=== PATIENT | female | born 1975 | race Caucasian/White ===

== ENCOUNTER 2020-08-15 15:54 | Emergency (ER) | payer OTHER ==
[2020-08-15 16:08] VITALS: BP 127/88; PULSE 91; O2SAT 99
[2020-08-15] MEDS ORDERED: TORAdol 30 mg Injection IM ONE (16:15)
[2020-08-15] MEDS ORDERED: Norflex 60 MG/2 ML IM ONE (16:15)
--- NOTE | 2020-08-15 16:21 | ERPHSYRPT ---
- History of Present Illness Time Seen by Provider: 08/15/20 16:18 Source: patient Exam Limitations: physical impairment Patient Subjective Stated Complaint: Pt states that she was getting into a truck when she felt a "tear" in her lower right back, rates the pain 10/10 Triage Nursing Assessment: Pt brought to the ER by her boyfriend, pt rates pain as 10/10 but she is laughing in bed and doesn't appear to be in any pain, vitals wnl, pulses normal, pt has hx of breaking tailbone x2 approx 17 years ago, denies any other injuries to the back, skin n/w/d, no difficulties with strength Physician History: Pt states that she was getting into a truck when she felt a "tear" in her lower right back, rates the pain 10/10 Timing/Duration: yesterday Method of Injury: slipped, twisted, turning Quality: aching Back Pain Location: lumbar spine Back Pain Radiation: lower legs Severity of Pain-Max: severe Severity of Pain-Current: severe Modifying Factors: Improves With: nothing Associated Symptoms: denies symptoms Previous symptoms: no prior history Allergies/Adverse Reactions: Sulfa (Sulfonamide Antibiotics) Allergy (Mild, Verified 08/15/20 16:08) Swelling hydrocodone bitartrate [From Vicodin] Adverse Reaction (Verified 08/15/20 16:08) Home Medications: Doxepin HCl 150 mg PO HS 08/15/20 [History] Famotidine 20 mg [Pepcid 20 MG] 40 mg PO DAILY 08/15/20 [History] Hx Tetanus, Diphtheria Vaccination/Date Given: No Hx Influenza Vaccination/Date Given: No Hx Pneumococcal Vaccination/Date Given: No Travel Risk - International Travel Have you traveled outside of the country in past 3 weeks: No - Coronavirus Screening Are you exhibiting any of the following symptoms?: No Close contact with a COVID-19 positive Pt in past 14-21 Days: No - Review of Systems Constitutional: No Symptoms Eyes: No Symptoms Ears, Nose, & Throat: No Symptoms Respiratory: No Symptoms Cardiac: No Symptoms Abdominal/Gastrointestinal: No Symptoms Genitourinary Symptoms: No Symptoms Musculoskeletal: Back Pain Skin: No Symptoms Neurological: No Symptoms - Past Medical History Pertinent Past Medical History: Yes Neurological History: No Pertinent History ENT History: No Pertinent History Cardiac History: No Pertinent History Respiratory History: No Pertinent History Endocrine Medical History: No Pertinent History Musculoskeletal History: No Pertinent History GI Medical History: Ulcer History: No Pertinent History Psycho-Social History: Anxiety, Depression Female Reproductive Disorders: No Pertinent History Other Medical History: hiatal hernia, anemia, covid - Past Surgical History Past Surgical History: Yes Neuro Surgical History: No Pertinent History Cardiac: No Pertinent History Respiratory: No Pertinent History Gastrointestinal: Hernia Repair Genitourinary: No Pertinent History Musculoskeletal: No Pertinent History Female Surgical History: Section Other Surgical History: egd 2011 , haital hernia repair - Social History Smoking Status: Never smoker Exposure to second hand smoke: No Drug Use: none Patient Lives Alone: No - Female History Hx Last Menstrual Period: 08/14/2020 Hx Now: No - Nursing Vital Signs Nursing Vital Signs: Initial Vital Signs Temperature 97.6 F 08/15/20 15:58 Pulse Rate 91 H 08/15/20 15:58 Blood Pressure 127/88 08/15/20 15:58 O2 Sat by Pulse Oximetry 99 08/15/20 15:58 Pain Scale Pain Intensity [] 10 Pain Intensity 10 - Physical Exam General Appearance: mild distress Eye Exam: PERRL/EOMI Ears, Nose, Throat Exam: normal ENT inspection Neck Exam: normal inspection Respiratory Exam: normal breath sounds Cardiovascular Exam: regular rate/rhythm Gastrointestinal Exam: soft Back Exam: decreased range of motion, muscle spasm, No CVA tenderness, No vertebral tenderness, No rash, No point tenderness Extremity Exam: normal inspection Neurologic Exam: alert, oriented x 3, cooperative, sensation nml, No motor deficits Skin Exam: normal color SpO2 Interpretation: normal SpO2: 99 O2 Delivery: Room Air - Course Nursing assessment & vital signs reviewed: Yes - Radiology Exams L-Spine X-ray Interpretation: Reviewed by me Ordered Tests: Active Orders 24 hr Category Date Time Status LUMBAR LIMITED (2 OR 3 VIEWS) Stat Exams 08/15/20 16:16 Ordered Medication Summary Discontinued Medications Generic Name Dose Route Start Last Admin Trade Name Freq PRN Reason Stop Dose Admin Ketorolac Tromethamine 60 mg 08/15/20 16:15 08/15/20 16:35 Toradol 30 Mg Injection IM 08/15/20 16:16 60 mg STAT ONE Administration Ketorolac Tromethamine Confirm 08/15/20 16:24 Toradol 30 Mg Injection Administered 08/15/20 16:25 Dose 60 mg .ROUTE .STK-MED ONE Orphenadrine Citrate 60 mg 08/15/20 16:15 08/15/20 16:35 Norflex 60 Mg/2 Ml IM 08/15/20 16:16 60 mg STAT ONE Administration Orphenadrine Citrate Confirm 08/15/20 16:24 Norflex 60 Mg/2 Ml Administered 08/15/20 16:25 Dose 60 mg .ROUTE .STK-MED ONE - Progress Progress: improved, pain not gone completely Counseled pt/family regarding: diagnosis, need for follow-up, rad results - Departure Departure Disposition: Home Clinical Impression: Lumbalgia Qualifiers: Chronicity: acute Back pain laterality: bilateral Sciatica presence: without sciatica Qualified Code(s): M54.5 - Low back pain Condition: Stable Critical Care Time: No Referrals: ROBINSON WATKINS, [employer] SUPPORT CONTROL OFFICER [Primary Care Provider] - Instructions: Low Back Pain (DC) Additional Instructions: Discharge/Care Plan ROBIN BECKMAN was seen on 08/15/20 in the Emergency Room. The patient was counseled regarding Diagnosis,Lab results, Imaging studies, need for follow up and when to return to the Emergency Room. Prescriptions given: Discharge Note I have spoken with the patient and/or caregivers. I have explained the patient's condition, diagnosis and treatment plan based on the information available to me at this time. I have answered the patient's and/or caregiver's questions and addressed any concerns. The patient and/or caregivers have as good understanding of the patient's diagnosis, condition and treatment plan as can be expected at this point. The vital signs have been stable. The patient's condition is stable and appropriate for discharge from the emergency department. The patient will pursue further outpatient evaluation with the primary care phys ician or other designated or consulting physician as outlined in the discharge instructions. The patient and/or caregivers are agreeable to this plan of care and follow-up instructions have been explained in detail. The patient and/or caregivers have received these instruction. The patient/and or caregivers are aware that any significant change in condition or worsening of symptoms should prompt an immediate return to this or the closest emergency department or call 911. ROBIN BECKMAN was seen on 08/15/20 n the Emergency Room. At that time you were treated for an emergent condition, during your visit Laboratory, Radiology and/or other procedures may have been ordered. It is very important that you follow-up with your Primary Care Physician ROBINSON WATKINS within the next 24- 48 hours to review your Emergency Room visit and the final results of testing that was ordered. Some test results such as Urine Cultures, Blood Cultures, and other cultures if ordered will not be finalized for 24-48 hours. If you do not have a Primary Care Provider please call the medical records department at [phone] ext [phone] to obtain a copy of your results or you may sign into our patient portal to obtain these results by visiting us @ [email or web address] and completing the following steps: 1. Click on the Patient Portal link 2. Click the Patient Self Enrollment Link to complete the enrollment form and entering your 3. Once the enrollment form is completed you will receive an email with a temporary ID and password at the email address you provided. 4. Next choose a user name and password. Your user name must be at least 4 characters long and your password must be at least 4 characters long. 5. Choose a security question from the list and provide your answer to the question. If you already have signed into the Health Portal you may access your Health C are Information 18/06 by the following steps: 1. Login to our website @ [email or web address] 2. Enter your original user name and password. FAQS The [facility] is an online tool that contains your Lab Results, Radiology Reports, Visit History, Discharge Instructions and Health Summary Lab and Radiology Results will not be available for 72 hours on the portal. The Portal is a secure site, passwords are encryted and URLs are re-written so they cannot be copied and pasted. You and authorized family members are the only ones who can access your Portal. Also there is a timeout feature that protects your information if you leave the Portal page open. If you have technical difficulty please use the Contact Us link on the page this will allow you to submit any questions you have regarding the Portal or you may contact the Medical Record Department at [phone] ext [phone]. Prescriptions: Cyclobenzaprine HCl 10 mg [Flexeril 10 MG] 10 mg PO TID #30 tablet Naproxen 375 mg [Naprosyn 375 mg] 375 mg PO Q8H #30 tablet
[2020-08-15] MEDS ORDERED: Norflex 60 MG/2 ML ONE (16:24)
[2020-08-15] MEDS ORDERED: TORAdol 30 mg Injection ONE (16:24)
--- NOTE | 2020-08-15 19:20 | XRAY ---
Indication: Left low back pain following injury. Comparison: None 3 view lumbar spine demonstrates 5 lumbar vertebral segments in normal alignment with vertebral body heights/disc spaces maintained. Minimal multilevel anterior endplate spurring and mild diffuse scattered colonic fecal debris. No other bony, articular, or soft tissue abnormalities.
== END 2020-08-15 17:01 | disposition home or self-care (01) ==
LOC: ED 15:54
DX: M45.4 Ankylosing spondylitis of thoracic region (principal); X50.9XXA Other and unspecified overexertion or strenuous movements or postures, initial encounter; Y93.9 Activity, unspecified; Y92.9 Unspecified place or not applicable
CPT/HCPCS: 72100; 96372; 99284; J1885; J2360

== ENCOUNTER 2020-08-26 14:17 | Emergency (ER) | payer OTHER ==
--- NOTE | 2020-08-26 14:54 | ERPHSYRPT ---
- History of Present Illness Time Seen by Provider: 08/26/20 14:35 Source: patient Exam Limitations: no limitations Patient Subjective Stated Complaint: shingles outbreak on neck Triage Nursing Assessment: pt to ED c/o shingles outbreak on bilateral sides of neck at hairline. hx shingles and she has had them intermittently since Oct 2019. rates 8/10 pain and ithcing at lesions. no drainage noted. pt reports some mild odor "like infection" at lesions, but no odor noted on arrival to ED. started abx last week but does not feel like its helping. Physician History: This is a 44-year-old white female who has had recurrent episodes of shingles on her neck in the past. She has had 3 episodes in the last year per her report. Patient had been placed on Valtrex with resolution of her skin symptoms. It is very tender per her report patient has been on Valtrex now for a week without improvement. Patient has had no fever. Patient desires an alternative to Valtrex because she does not feel that this is working for her. Patient also states that she has a left tongue ulceration that coincided with the onset of this outbreak. Timing/Duration: week(s) (Approximately 1 week) Quality: burning, itchy, painful Severity: moderate Location: scalp (Within her hairline at the junction between hair and no hair on her neck posteriorly.) Possible Causes: other (Viral) Associated Symptoms: blisters, change in skin texture Allergies/Adverse Reactions: Sulfa (Sulfonamide Antibiotics) Allergy (Mild, Verified 08/15/20 16:08) Swelling hydrocodone bitartrate [From Vicodin] Adverse Reaction (Verified 08/15/20 16:08) Home Medications: Doxepin HCl 150 mg PO HS 08/15/20 [History] Famotidine 20 mg [Pepcid 20 MG] 40 mg PO DAILY 08/15/20 [History] Hx Tetanus, Diphtheria Vaccination/Date Given: No Hx Influenza Vaccination/Date Given: No Hx Pneumococcal Vaccination/Date Given: No Travel Risk - International Travel Have you traveled outside of the country in past 3 weeks: No - Coronavirus Screening Are you exhibiting any of the following symptoms?: No Close contact with a COVID-19 positive Pt in past 14-21 Days: No - Review of Systems Constitutional: No Symptoms Eyes: No Symptoms Ears, Nose, & Throat: Other (Ulceration left lateral tongue) Respiratory: No Symptoms Cardiac: No Symptoms Abdominal/Gastrointestinal: No Symptoms Genitourinary Symptoms: No Symptoms Musculoskeletal: No Symptoms Skin: Rash (Painful at the base of scalp in the hairline) Neurological: No Symptoms Psychological: No Symptoms Endocrine: No Symptoms Immunological/Allergic: No Symptoms All Other Systems: Reviewed and Negative - Past Medical History Pertinent Past Medical History: Yes Neurological History: No Pertinent History ENT History: No Pertinent History Cardiac History: No Pertinent History Respiratory History: No Pertinent History Endocrine Medical History: No Pertinent History Musculoskeletal History: No Pertinent History GI Medical History: Ulcer History: No Pertinent History Psycho-Social History: Anxiety, Depression Female Reproductive Disorders: No Pertinent History Other Medical History: hiatal hernia, anemia, covid May 2020. - Past Surgical History Past Surgical History: Yes Neuro Surgical History: No Pertinent History Cardiac: No Pertinent History Respiratory: No Pertinent History Gastrointestinal: Hernia Repair Genitourinary: No Pertinent History Musculoskeletal: No Pertinent History Female Surgical History: Section Other Surgical History: egd 2011 , haital hernia repair - Social History Smoking Status: Never smoker Exposure to second hand smoke: No Drug Use: none Patient Lives Alone: No - Female History Hx Now: No - Nursing Vital Signs Nursing Vital Signs: Initial Vital Signs Temperature 97.6 F 08/26/20 14:24 Pulse Rate 87 08/26/20 14:24 Respiratory Rate 18 08/26/20 14:24 Blood Pressure 127/99 08/26/20 14:24 O2 Sat by Pulse Oximetry 99 08/26/20 14:24 Pain Scale Pain Intensity 8 - Physical Exam General Appearance: no apparent distress, alert, anxiety Eye Exam: PERRL/EOMI, eyes nml inspection Ears, Nose, Throat Exam: normal ENT inspection, moist mucous membranes Neck Exam: normal inspection, non-tender, supple, full range of motion Respiratory Exam: airway intact, No chest tenderness, No respiratory distress Gastrointestinal/Abdomen Exam: No tenderness Pelvic Exam: not done Rectal Exam: not done Back Exam: normal inspection, normal range of motion, No CVA tenderness, No vertebral tenderness Extremity Exam: normal inspection, normal range of motion, pelvis stable Neurologic Exam: alert, oriented x 3, cooperative, quality control coordinator II-XII nml as tested, normal mood/affect, nml cerebellar function, nml station & gait, sensation nml Skin Exam: rash (Painful rash, with blistering and crusting at the hairline at the base of her scalp posteriorly neck), other (No evidence of cellulitis) Lymphatic Exam: No adenopathy SpO2 Interpretation: normal SpO2: 99 O2 Delivery: Room Air - Course Nursing assessment & vital signs reviewed: Yes - Progress Progress Note: 08/26/20 14:58 Patient is not allergic to hydrocodone. She had some forgetfulness after receiving this postoperatively. She does not have a true allergy to hydrocodone. She thinks that the forgetfulness was more a function of the anesthesia she received rather than the hydrocodone. Counseled pt/family regarding: diagnosis, need for follow-up - Departure Departure Disposition: Home Clinical Impression: Shingles rash Condition: Stable Critical Care Time: No Referrals: ROBINSON WATKINS FOOD TESTER [Primary Care Provider] - Additional Instructions: Keep the rash area clean daily with soap and water. Do not scratch. Stop your Valtrex. Follow-up with your primary care physician for further management. Prescriptions: Oxycodone HCl/Acetaminophen [Percocet 5-325 mg Tablet] 1 each PO Q8H PRN PRN #8 tablet MDD 3 PRN Reason: Pain hydrOXYzine pamoate [Vistaril] 25 mg PO Q8H PRN PRN #10 capsule PRN Reason: Itching Acyclovir 800 mg [Zovirax 800 mg] 800 mg PO 5XD #35 tablet
[2020-08-26 15:21] VITALS: BP 125/99; PULSE 91; O2SAT 97
== END 2020-08-26 15:33 | disposition home or self-care (01) ==
LOC: ED 14:17
DX: B02.9 Zoster without complications (principal); R21 Rash and other nonspecific skin eruption
CPT/HCPCS: 99283

== ENCOUNTER 2021-11-08 13:16 | Emergency (ER) | payer OTHER ==
[2021-11-08] MEDS ORDERED: BABY ASPIRIN 81 MG CHEW PO ONE (13:33)
[2021-11-08] MEDS ORDERED: GI COCKTAIL 45 ML (Maalox/Lidocaine) PO ONE (13:34)
[2021-11-08] MEDS ORDERED: BABY ASPIRIN 81 MG CHEW ONE (13:57)
--- NOTE | 2021-11-08 13:57 | XRAY ---
Indication: Chest pain. Comparison: May 22, 2016. Portable chest again demonstrates normal heart and lungs. Bony thorax intact. No new/acute findings.
[2021-11-08] MEDS ORDERED: XYLOCAINE HCl Viscous ONE (13:59)
[2021-11-08] MEDS ORDERED: MAALOX ES 30 ML UNIT DOSE ONE (13:59)
[2021-11-08 14:07] LABS: BASOPHIL % 0.5 % (0.0-0.4); Basophil (Absolute #) 0.05 (0-0.4); Eosinophil % 0.5 % (0.00-5.0); Eosinophil (Absolute #) 0.05 (0-0.5); Hematocrit 45.9 % (35-47); Hemoglobin 14.9 gm/dl (12.0-16.0); Lymphocytes % 14.9 % (24.0-44.0); Mean Cell Volume 99.1 fl (78-100); Mean Corpuscular Hemoglobin 32.2 pg (26-32); Mean Corpuscular Hgb Concent. 32.5 g/dl (32-36); Mean Platelet Volume 9.3 fl (7.5-11.0); Monocytes % 5.3 % (0.0-12.0); Neutrophil % 78.8 % (36.0-66.0); Platelet Count 428 K/mm3 (150-450); Red Blood Count 4.63 M/mm3 (4.1-5.4); Red Cell Distribution Width 13.3 % (11.5-14.0); White Blood Count 9.4 K/mm3 (4.0-10.5)
[2021-11-08 14:58] LABS: ALBUMIN 4.1 g/dL (3.5-5.0); ALKALINE PHOSPHATASE 89 U/L (38-126); ANION GAP 13.1 MEQ/L (5-15); BLOOD UREA NITROGEN 12 mg/dL (7-17); CHLORIDE 103 mmol/L (98-107); Calcium 8.8 mg/dL (8.4-10.2); Carbon Dioxide 24 mmol/L (22-30); Creatinine 1 0.76 mg/dL (0.52-1.04); EST GLOMERULAR FILTRATION RATE > 60.0 ML/MIN; Glucose 84 mg/dL (74-106); NT PRO BNP 98.6 pg/mL (0-450); Potassium 4.7 mmol/L (3.5-5.1); SGOT/AST 31 U/L (14-36); SGPT/ALT 20 U/L (0-35); SODIUM 135 mmol/L (137-145); Total Protein 6.9 g/dL (6.3-8.2)
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
[2021-11-08 17:15] VITALS: BP 135/91; PULSE 67
[2021-11-08 17:25] VITALS: O2SAT 98
== END 2021-11-08 17:44 | disposition home or self-care (01) ==
LOC: ED 13:16
DX: R07.89 Other chest pain (principal); R00.2 Palpitations; Z86.16 Personal history of COVID-19
CPT/HCPCS: 36000; 36415; 71045; 80053; 83880; 84484; 85025; 85379; 93005; 93041; 99284; A9270-GY

== ENCOUNTER 2024-06-02 13:24 | Emergency (ER) | payer OTHER ==
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
[2024-06-02 14:01] VITALS: RESP 18; TEMP 97
[2024-06-02 14:22] LABS: Absolute Neutrophil Ct (ANC) 4.23 x10^3/uL (1.56-6.13); Basophil (Absolute #) 0.06 x10^3/uL (0.01-0.08); Eosinophil % 0.5 % (0.7-5.8); Eosinophil (Absolute #) 0.03 x10^3/uL (0.04-0.36); Hematocrit 39.8 % (34.1-44.9); Hemoglobin 13.4 g/dL (11.2-15.7); IMMATURE GRAN # 0.03 x10^3u/L (0.001-0.031); IMMATURE GRAN % 0.5 % (0.001-0.429); Lymphocyte (Absolute #) 1.53 x10^3/uL (1.18-3.74); Lymphocytes % 24.3 % (19.3-51.7); Mean Cell Volume 92.3 fL (79.4-94.8); Mean Corpuscular Hemoglobin 31.1 pg (25.6-32.2); Mean Corpuscular Hgb Concent. 33.7 g/dL (32.2-35.5); Mean Platelet Volume 8.7 fL (9.4-12.3); Monocyte (Absolute #) 0.41 x10^3/uL (0.24-0.86); Monocytes % 6.5 % (4.7-12.5); Neutrophil % 67.2 % (34.0-71.1); Platelet Count 431 x10^3/uL (182-369); Red Blood Count 4.31 x10^6/uL (3.93-5.22); Red Cell Distribution Width 14.6 % (11.7-14.4); White Blood Count 6.3 x10^3/uL (3.98-10.04)
[2024-06-02 14:44] LABS: ALBUMIN 4.1 g/dL (3.5-5.0); ANION GAP 10.1 MEQ/L (5-15); BILIRUBIN,TOTAL 0.4 mg/dL (0.2-1.3); Calcium 9.4 mg/dL (8.4-10.2); Creatinine 1 0.71 mg/dL (0.52-1.04); EST GLOMERULAR FILTRATION RATE 104.2 ML/MIN; Potassium 4.5 mmol/L (3.5-5.1)
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
[2024-06-02 15:40] VITALS: BP 125/90; PULSE 56; O2SAT 99
== END 2024-06-02 15:50 | disposition home or self-care (01) ==
LOC: ED 13:24
DX: S40.021A Contusion of right upper arm, initial encounter (principal); S50.11XA Contusion of right forearm, initial encounter; S70.11XA Contusion of right thigh, initial encounter; S80.02XA Contusion of left knee, initial encounter; V48.5XXA Car driver injured in noncollision transport accident in traffic accident, initial encounter; R51.9 Headache, unspecified; M54.2 Cervicalgia; M54.6 Pain in thoracic spine; R07.9 Chest pain, unspecified; R10.9 Unspecified abdominal pain
CPT/HCPCS: 36415; 70450; 71250; 72125; 73060; 73090; 73552; 73562; 74176; 76376; 80053; 85025; 93005; 93041; 99285